=== PATIENT | female | born 1940 | race Caucasian/White ===

== ENCOUNTER 2020-11-10 12:49 | Observation (INO) | payer MEDICARE ==
[~2020-11-10] VITALS: Ht 162.6 cm; Wt 72.2 kg
[2020-11-10 13:49] VITALS: BP 133/79
[2020-11-10] MEDS ORDERED: METO50TA29 PO (14:12)
[2020-11-10] MEDS ORDERED: LEVO75TA5 PO (14:12)
--- NOTE | 2020-11-10 14:35 | NUR ---
NURSING NOTE ADMIT PT ADMIT TO ROOM 115 FOR DX OF SBO. PT TAKES 2 MEDICATIONS. PT STATES SHE HAS BEEN VOMITING OFF AND ON SINCE SUDNAY, HAS ABD PAIN, AND WAS CALLED AND TOLD TO COME TO HOSPITAL. PT SETTLED IN ROOM, DTR AT BEDSIDE. JUN HUNTER.
[2020-11-10] MEDS: IV 1/2 NORMAL SALINE 1,000 ML IV SCH (15:29)
[2020-11-10 16:38] LABS: BASO # 0.1 x10^3/uL (0.0-0.2); BASO % 1 % (0-3); EOS # 0.1 x10^3/uL (0.0-0.7); EOS % 1 % (0-3); HEMATOCRIT 40.4 % (36.0-47.0); HEMOGLOBIN 13.6 g/dL (12.0-15.5); LYMPH # 1.3 x10^3/uL (1.0-4.8); LYMPH % 13 % (24-48); MEAN CORPUSCULAR HEMOGLOBIN 31 pg (25-35); MEAN CORPUSCULAR HGB CONC 34 g/dL (31-37); MEAN CORPUSCULAR VOLUME 93 fL (79-100); MONO # 0.8 x10^3/uL (0.0-1.1); MONO % 9 % (0-9); NEUT # 7.6 x10^3uL (1.8-7.7); NEUT % 76 % (31-73); PLATELET COUNT 328 x10^3/uL (140-400); RED BLOOD COUNT 4.34 x10^6/uL (3.50-5.40); RED CELL DISTRIBUTION WIDTH 12.6 % (11.5-14.5)
[2020-11-10 16:54] LABS: ALBUMIN 3.3 g/dL (3.4-5.0); ALBUMIN/GLOBULIN RATIO 0.9 (1.0-1.7); CALCIUM 9.3 mg/dL (8.5-10.1); GFR 53.3; TOTAL BILIRUBIN 0.8 mg/dL (0.2-1.0)
--- NOTE | 2020-11-10 17:13 | EKG ---
[address] [address] Test Date: 2020-11-10 Test Time: 17:09:44 Pat Name: MARI RODRIGUEZ Department: Room: 115 A Gender: F [employer]: : [id number] Requested By: MICHELLE DIMAS Order Number: [id number] Reading MD: Measurements Intervals [place] Rate: 83 P: 24 WV: 154 QRS: 24 QRSD: 86 T: 41 QT: 374 QTc: 440 Interpretive Statements SINUS RHYTHM NORMAL ECG RI6.01 No previous ECG available for comparison
[2020-11-10 19:56] VITALS: BP 118/75
--- NOTE | 2020-11-10 19:59 | RAD ---
Examination: Ultrasound left lower quadrant abdominal wall HISTORY: History of abdominal pain, hernia COMPARISON: None available Findings/ impression: Ultrasound of the left lower quadrant was performed. The hernia seen on the CT scan performed earlier today is not clearly evident on this examination probably due to bowel gas. Electronically signed by: Jeff Bragg MD (11/10/2020 7:57 PM) [id number]
[2020-11-10] MEDS: METOCLOPRAMIDE HCL 10 MG/2 ML VIAL. IVP PRN (20:38)
[2020-11-10 23:46] VITALS: BP 113/71
[2020-11-11] MEDS: IV 1/2 NORMAL SALINE 1,000 ML IV SCH ×2 (02:14→12:36)
[2020-11-11] MEDS: METOCLOPRAMIDE HCL 10 MG/2 ML VIAL. IVP PRN (04:43)
--- NOTE | 2020-11-11 05:04 | NUR ---
Pt awoke nauseous and vomiting this AM. Pt had approx. 50ml bile-colored emesis. PRN Reglan given as indicated, pt reports effective.
[2020-11-11 05:13] LABS: BACTERIA,URINE FEW /HPF (0-FEW); BILIRUBIN,URINE MOD (NEG); CLARITY,URINE CLEAR; COLOR,URINE YELLOW; GLUCOSE,URINE NEG (NEG); NITRITE,URINE NEG (NEG); RBC,URINE OCC /HPF (0-2); SQUAMOUS EPITHELIAL CELL,UR OCC /LPF; UROBILINOGEN,URINE 0.2 mg/dL (0.2 mg/dL)
[2020-11-11 05:49] VITALS: BP 126/89
[2020-11-11] MEDS ORDERED: PANTOPRAZOLE IV 40 MG VIAL. IVP SCH (07:30)
--- NOTE | 2020-11-11 08:13 | RAD ---
2 VIEW ABDOMINAL SERIES AND PA VIEW CHEST X-RAY INDICATIONS: Abdominal pain. Follow-up of small bowel obstruction. FINDINGS: Small bowel dilatation is again evident and is unchanged. No free intraperitoneal air or ai r-fluid levels are seen. Cholecystectomy clips are apparent. Surgical clip is seen within the mid pel vis. Chest x-ray demonstrates no lung consolidation or pulmonary edema or pleural effusion or pneumothorax . The heart size and pulmonary vasculature and both stephanie are unremarkable. IMPRESSION: Stable small bowel obstruction. There is a question of a new nodular density of the left upper lobe. Attention on follow-up chest x-r ay. Electronically signed by: Mitchell Sullivan MD (11/11/2020 8:11 AM) [id number]
[2020-11-11] MEDS ORDERED: METOPROLOL SUCC 24HR ER 50 MG TAB.ER.24H. PO SCH (09:00)
[2020-11-11] MEDS ORDERED: LEVOTHYROXINE 75 MCG TABLET PO SCH (09:00)
[2020-11-11 10:23] VITALS: BP 108/64
[2020-11-11 14:24] VITALS: BP 114/73
--- NOTE | 2020-11-11 15:49 | NUR ---
PATIENT IS TRANSFERRED TO [facility] FOR HIGHER LEVEL OF CARE/ GI CONSULT. CONSENT FOR TRANSFER OBTAINED FROM THE PATIENT. REPORT GIVEN TO SHERRI BARAHONA. PATIENT LEFT ROOM 115 VIA [facility] BY DAUGHTER.
== END 2020-11-11 15:45 | disposition short-term general hospital (02) ==
LOC: INTOOBSV 12:56 → 1 SOUTH 12:56
PROVIDERS: ADMIT Family Medicine; ATTEND Family Medicine
DX: K56.609 Unspecified intestinal obstruction, unspecified as to partial versus complete obstruction (principal); R11.10 Vomiting, unspecified; I10 Essential (primary) hypertension; E87.5 Hyperkalemia; E03.9 Hypothyroidism, unspecified; K46.9 Unspecified abdominal hernia without obstruction or gangrene; I51.7 Cardiomegaly; J18.9 Pneumonia, unspecified organism; Z79.899 Other long term (current) drug therapy; Z98.890 Other specified postprocedural states; Z98.891 History of uterine scar from previous surgery
CPT/HCPCS: 36415; 74022; 76881; 80053; 81001; 83690; 85025; 87086; 93005; 96361; 96365; 96375; 96376; C9113; G0378; G0379; J0696; J2765; J7030

== ENCOUNTER → 2020-11-10 | Outpatient (CLI) | payer MEDICARE ==
[~2020-11-10] MED LIST: LEVO75TA5 PO; METO50TA29 PO
--- NOTE | 2020-11-10 12:38 | RAD ---
EXAM: CT Abdomen and Pelvis without IV contrast CLINICAL HISTORY: Reason: LEFT LOWER QUADRANT ABDOMINAL PAIN / Spl. Instructions: / History: . COMPARISON: none TECHNIQUE: Helical CT of the abdomen and pelvis without intravenous contrast. Axial, coronal and sagi ttal reformatted images were generated. PQRS compliance statement - One or more of the following individualized dose reduction techniques wer e utilized for this study: 1. Automated exposure control 2. Adjustment of the mA and/or kV according to patient size 3. Use of iterative reconstruction technique FINDINGS: Lack of intravenous contrast limits evaluation of solid organs, vasculature, and lymph nodes. Lower chest: Lung bases are clear. Abdomen and Pelvis: Focal low-attenuation along the left hepatic lobe likely focal fatty infiltration. There has been a c holecystectomy. No biliary duct dilatation. Pancreas is unremarkable. Spleen is normal in appearance. Adrenal glands are unremarkable. No focal renal lesion. No renal tract calculus. No hydronephrosis. No hydroureter. Bladder is unremar kable. There is dilation of the small bowel to the level of the left inguinal hernia with distal decompressi on. Moderate colonic stool content. Appendix is not convincingly seen although no significant pericecal inflammatory change. No abdominal pelvic lymphadenopathy. No abdominal pelvic ascites. Bones: Multifocal degenerative changes of the spine are seen. No aggressive osseous lesion is seen IMPRESSION: Small bowel obstruction to the level of a left inguinal hernia with distal small bowel decompression Findings of small bowel obstruction discussed with Senait Díaz at 11/10/2020 12:32 PM. FOR INTERNAL CODING PURPOSES RESULT CODE: (C) Electronically signed by: Victorino Jacome MD (11/10/2020 12:36 PM) JESSICA
== END ==
LOC: CT 11:33
PROVIDERS: ATTEND Family Medicine
DX: R11.10 Vomiting, unspecified (principal); R10.32 Left lower quadrant pain
CPT/HCPCS: 74176